=== PATIENT | female | born 1980 | race Caucasian/White ===

== ENCOUNTER 2021-12-14 21:58 | Emergency (ER) | payer MEDICAID ==
[~2021-12-14] VITALS: Ht 157.5 cm; Wt 92.9 kg
[2021-12-15] MEDS ORDERED: KETOROLAC 30MG/ML VIAL IM ONE (03:00)
[2021-12-15 03:33] VITALS: BP 136/72
[2021-12-15] MEDS ORDERED: NAPR-1176 MT (04:26)
[2021-12-15] MEDS ORDERED: CYCL10TA21 MT (04:26)
== END 2021-12-15 04:40 | disposition home or self-care (01) ==
LOC: ER 21:58
DX: M25.511 Pain in right shoulder (principal); R07.81 Pleurodynia; M54.2 Cervicalgia; M54.89 Other dorsalgia; Y07.03 Male partner, perpetrator of maltreatment and neglect; R03.0 Elevated blood-pressure reading, without diagnosis of hypertension; Y04.8XXA Assault by other bodily force, initial encounter; Y93.89 Activity, other specified; Y92.89 Other specified places as the place of occurrence of the external cause
CPT/HCPCS: 71045; 73030; 81025; 96372; 99284; J1885